=== PATIENT | male | born 1970 | race Caucasian/White ===

== ENCOUNTER 2017-04-18 16:56 | Emergency (ER) | payer OTHER ==
[~2017-04-18] VITALS: Ht 182.9 cm; Wt 106.6 kg
[2017-04-18] MEDS ORDERED: COUMADIN 5 MG TA5 M1 PO (17:07)
[2017-04-18] MEDS ORDERED: ALLOPURINOL 10100 M1 PO (17:07)
[2017-04-18 18:31] VITALS: BP 161/118
== END 2017-04-18 18:31 | disposition home or self-care (01) ==
LOC: M.ERS 16:56
DX: S80.11XA Contusion of right lower leg, initial encounter (principal); W50.0XXA Accidental hit or strike by another person, initial encounter; Y93.89 Activity, other specified; Y92.89 Other specified places as the place of occurrence of the external cause; Y99.8 Other external cause status

== ENCOUNTER 2017-04-24 11:10 | Observation (INO) | payer OTHER ==
[~2017-04-24] VITALS: Ht 182.9 cm; Wt 107.0 kg
[~2017-04-24 11:10] MED LIST: ALLOPURINOL 10100 M1 PO; COUMADIN 5 MG TA5 M1 PO
[2017-04-24 11:19] VITALS: BP 127/83
[2017-04-24] MEDS ORDERED: AMOXIL 875 MG875 M1 PO (11:21)
[2017-04-24 12:02] LABS: HEMOGLOBIN 13.3 gm/dL (14.0-18.0)
[2017-04-24 12:03] LABS: ABSOLUTE EOSINOPHILS 0.1 thou/uL (0.0-0.7); ABSOLUTE MONOCYTES 0.5 thou/uL (0.0-1.2); ABSOLUTE NEUTROPHILS 4.2 thou/uL (1.6-8.1); MCH 34.6 pg (26.0-34.0); MONOCYTES 7.5 %; NUCLEATED RBCS 0 /100WBC; PLATELET COUNT* 329 thou/uL (150-400); WBC 6.3 thou/uL (4.0-11.0)
[2017-04-24 12:05] LABS: ABSOLUTE LYMPHOCYTES 1.5 thou/uL (0.8-5.3); BASOPHILS 0.6 %; EOSINOPHILS 1.8 %; HEMATOCRIT 38.2 % (42.0-52.0); LYMPHOCYTES 23.2 %; MCHC 34.8 g/dL (28.0-37.0); MCV 99.3 fL (80.0-100.0); MPV 6.9 fl. (7.2-11.1); POLYS 66.9 %; RBC 3.84 mil/uL (4.50-6.00)
[2017-04-24 12:10] LABS: CALCIUM 8.8 mg/dL (8.5-10.1); CREATININE 1.1 mg/dL (0.6-1.3); POTASSIUM 3.8 mmol/L (3.5-5.1)
[2017-04-24 12:15] LABS: ALBUMIN 3.3 g/dL (3.4-5.0); TOTAL BILIRUBIN 0.5 mg/dL (<0.1-1.0); TOTAL PROTEIN 7.3 g/dL (6.4-8.2)
[2017-04-24 13:21] LABS: INR 2.1; PROTIME 20.7 Seconds (9.20-11.50)
[2017-04-24 15:01] VITALS: BP 124/68
[2017-04-24 15:27] VITALS: BP 124/89
[2017-04-24 20:00] VITALS: BP 114/82
[2017-04-25] MEDS ORDERED: PROBIOTIC1 EAC1 PO (08:01)
[2017-04-25] MEDS ORDERED: KEFLEX500 M1 PO (08:01)
[2017-04-25 08:24] VITALS: BP 137/61
[2017-04-25 10:32] VITALS: BP 137/61
[2017-04-25] MEDS ORDERED: HYDROCODONE-AP1 EAC6 PO (10:40)
== END 2017-04-25 11:30 | disposition home or self-care (01) ==
LOC: M.ERS 11:10 → M.TBA-ER 13:55 → M.ORTHSURG 13:55
PROVIDERS: Nurse Practitioner Family; ADMIT Internal Medicine
DX: L03.115 Cellulitis of right lower limb (principal); S80.11XA Contusion of right lower leg, initial encounter; D68.59 Other primary thrombophilia; M10.9 Gout, unspecified; Z86.711 Personal history of pulmonary embolism; Z79.01 Long term (current) use of anticoagulants; W51.XXXA Accidental striking against or bumped into by another person, initial encounter; Y93.67 Activity, basketball; Y92.89 Other specified places as the place of occurrence of the external cause; Y99.8 Other external cause status